=== PATIENT | male | born 1980 | race Caucasian/White ===

== ENCOUNTER 2017-11-24 09:45 | Observation (INO) | payer SELFPAY ==
[~2017-11-24 09:45] MED LIST: SUCCINYLCHOLINE CHLORIDE INJ 200 MG/10 ML VIAL ONE
--- NOTE | 2017-11-24 10:54 | ER Document Report ---
ED Medical Screen (RME) - General Chief Complaint: Abdominal Pain Stated Complaint: ABDOMINAL PAIN Time Seen by Provider: 11/24/17 10:53 Mode of Arrival: Ambulatory Information source: Patient Notes: This is a 37-year-old male with no significant problems who presents to the emergency room with lower suprapubic pain as well as rectal pain. Patient states he does have hemorrhoids. He states that the pain started approximately 1 week ago and has been intermittent but is gotten really bad this morning. Patient denies any fever. TRAVEL OUTSIDE OF THE [place] IN LAST 30 DAYS: No - Related Data Allergies/Adverse Reactions: No Known Drug Allergies Allergy (Verified 11/24/17 09:50) Past Medical History - Social History Chew tobacco use (# tins/day): No Frequency of alcohol use: Heavy Drug Abuse: None Renal/ Medical History: Denies: Hx Peritoneal Dialysis Past Surgical History: Reports: Hx Orthopedic Surgery - left hand Physical Exam - Vital signs Vitals: Temp Pulse Resp BP Pulse Ox 98.7 F 87 17 146/91 H 99 11/24/17 09:58 11/24/17 09:58 11/24/17 09:58 11/24/17 09:58 11/24/17 09:58 Course - Vital Signs Vital signs: Temp Pulse Resp BP Pulse Ox 98.7 F 87 17 146/91 H 99 11/24/17 09:58 11/24/17 09:58 11/24/17 09:58 11/24/17 09:58 11/24/17 09:58
[2017-11-24] MEDS ORDERED: ONDANSETRON 4 MG TAB.RAPDIS PO ONE (10:55)
[2017-11-24 11:35] LABS: ABSOLUTE BASOPHILS # (AUTO) 0.1 10^3/uL (0.0-0.2); ABSOLUTE EOSINOPHILS # (AUTO) 0.2 10^3/uL (0.0-0.6); ABSOLUTE LYMPHOCYTES (AUTO) 1.8 10^3/uL (0.5-4.7); ABSOLUTE MONOCYTES (AUTO) 0.7 10^3/uL (0.1-1.4); ABSOLUTE NEUT (AUTO) 6.8 10^3/uL (1.7-8.2); BASOPHILS % (AUTO) 0.6 % (0-2); EOSINOPHILS % (AUTO) 1.6 % (0-6); HEMATOCRIT 45.8 % (37.9-51.0); HEMOGLOBIN 15.6 g/dL (13.5-17.0); LYMPHOCYTES % (AUTO) 18.4 % (13-45); MEAN CORPUSCULAR HEMOGLOBIN 30.8 pg (27.0-33.4); MEAN CORPUSCULAR HGB CONC 34.1 g/dL (32.0-36.0); MEAN CORPUSCULAR VOLUME 90 fl (80-97); MONOCYTES % (AUTO) 7.7 % (3-13); PLATELET COUNT 305 10^3/uL (150-450); RED BLOOD COUNT 5.07 10^6/uL (4.35-5.55); RED CELL DISTRIBUTION WIDTH 13.4 % (11.5-14.0); SEGMENTED NEUTROPHILS % (AUTO) 71.7 % (42-78); TOTAL CELLS COUNTED % (AUTO) 100 %; WHITE BLOOD COUNT 9.6 10^3/uL (4.0-10.5)
[2017-11-24 11:40] LABS: APPEARANCE,URINE CLEAR; BILIRUBIN,URINE NEGATIVE (NEGATIVE); COLOR,URINE YELLOW; GLUCOSE, URINE NEGATIVE (NEGATIVE); KETONES,URINE NEGATIVE (NEGATIVE); LEUKOCYTE ESTERASE,URINE NEGATIVE (NEGATIVE); NITRITE,URINE NEGATIVE (NEGATIVE); PROTEIN,URINE NEGATIVE (NEGATIVE); URINE SPECIFIC GRAVITY 1.008; UROBILINOGEN,URINE NEGATIVE mg/dL (<2.0)
[2017-11-24] MEDS ORDERED: ONDANSETRON HCL INJ/PF 4 MG/2 ML SDV IV ONE (11:57)
[2017-11-24] MEDS ORDERED: MORPHINE SULFATE 10 MG/ML INJ IV ONE (11:57)
[2017-11-24] MEDS ORDERED: LIDOCAINE 4% INJ/PF (40 MG/ML) 5 ML AMPUL TOP ONE (11:59)
[2017-11-24] MEDS ORDERED: LIDOCAINE 4%/TETRACAINE 0.5%/EPI 0.18% 5 ML TOPICAL SOLN TOP ONE (12:09)
[2017-11-24 12:19] LABS: INTERNATIONAL RATION (INR) 0.91; PROTHROMBIN TIME 12.7 SEC (11.4-15.4)
[2017-11-24 12:20] LABS: PARTIAL THROMBOPLASTIN TIME 32.4 SEC (23.5-35.8)
[2017-11-24] MEDS ORDERED: AMPICILLIN SOD/SULBACTAM 3 GM VIAL IV ONE (12:35)
[2017-11-24] MEDS ORDERED: RINGERS SOLUTION,LACTATED 1,000 ML IV ONE (12:35)
--- NOTE | 2017-11-24 12:36 | ER Document Report ---
ED General - General Chief Complaint: Abdominal Pain Stated Complaint: ABDOMINAL PAIN Time Seen by Provider: 11/24/17 10:53 Mode of Arrival: Ambulatory TRAVEL OUTSIDE OF THE [place] IN LAST 30 DAYS: No - HPI Patient complains to provider of: Rectal pain Notes: Patient coming in for rectal bleeding rectal pain. Patient states ongoing for greater than a week. Was seen in urgent care because of rectal bleeding and underlying hemorrhoids. Patient states she was prescribed a cream however was unable to afford it. Patient states pain has increased therefore came to the ER for further evaluation. Patient states does have a history of chronic alcohol use drinks approximate sixpack a day. Patient also complains of some inguinal pain. Denies any dysuria denies any fevers chills nausea vomiting diarrhea. - Related Data Allergies/Adverse Reactions: No Known Drug Allergies Allergy (Verified 11/24/17 09:50) Past Medical History - General Information source: Patient - Social History Smoking Status: Current Every Day Smoker Chew tobacco use (# tins/day): No Frequency of alcohol use: Heavy Drug Abuse: None Family History: Reviewed & Not Pertinent Patient has suicidal ideation: No Patient has homicidal ideation: No Renal/ Medical History: Denies: Hx Peritoneal Dialysis Past Surgical History: Reports: Hx Orthopedic Surgery - left hand Review of Systems - Review of Systems Constitutional: No symptoms reported EENT: No symptoms reported Cardiovascular: No symptoms reported Respiratory: No symptoms reported Gastrointestinal: Abdominal pain, Rectal bleeding, Other - Rectal pain Genitourinary: No symptoms reported Male Genitourinary: No symptoms reported Musculoskeletal: No symptoms reported Skin: No symptoms reported Hematologic/Lymphatic: No symptoms reported Neurological/Psychological: No symptoms reported -: Yes All other systems reviewed and negative Physical Exam - Vital signs Vitals: Temp Pulse Resp BP Pulse Ox 98.7 F 87 17 146/91 H 99 11/24/17 09:58 11/24/17 09:58 11/24/17 09:58 11/24/17 09:58 11/24/17 09:58 Interpretation: Normal - General General appearance: Appears well, Alert - HEENT Head: Normocephalic, Atraumatic Eyes: Normal Pupils: PERRL - Respiratory Respiratory status: No respiratory distress Chest status: Nontender Breath sounds: Normal Chest palpation: Normal - Cardiovascular Rhythm: Regular Heart sounds: Normal auscultation Murmur: No - Abdominal Inspection: Normal Distension: No distension Bowel sounds: Normal Tenderness: Nontender Organomegaly: No organomegaly - Rectal Notes: Patient with a large thrombosed hemorrhoids of the rectum very painful to touch - Back Back: Normal, Nontender - Extremities General upper extremity: Normal inspection, Nontender, Normal color, Normal ROM , Normal temperature General lower extremity: Normal inspection, Nontender, Normal color, Normal ROM , Normal temperature, Normal weight bearing. No: Owen's sign - Neurological Neuro grossly intact: Yes Cognition: Normal Orientation: AAOx4 Gus Coma Scale Eye Opening: Spontaneous [place] Coma Scale Verbal: Oriented Gus Coma Scale Motor: Obeys Commands Gus Coma Scale Total: 15 Speech: Normal Motor strength normal: LUE, RUE, LLE, RLE Sensory: Normal - Psychological Associated symptoms: Normal affect, Normal mood - Skin Skin Temperature: Warm Skin Moisture: Dry Skin Color: Normal Course - Re-evaluation Re-evalutation: 11/24/17 14:52 Patient with very large thrombosed painful hemorrhoids they are painful to touch. Hemoglobin stable. The discussed with surgery on-call evaluated the patient and will take the patient to the OR for surgical treatment hopefully of his hemorrhoids - Vital Signs Vital signs: Temp Pulse Resp BP Pulse Ox 98.4 F 58 L 16 140/85 H 99 11/24/17 14:13 11/24/17 14:13 11/24/17 14:13 11/24/17 14:13 11/24/17 14:13 - Laboratory Result Diagrams: 11/24/17 11:17 11/24/17 12:37 Laboratory results interpreted by me: 11/24/17 12:37 BUN 6 L Discharge - Discharge Clinical Impression: Internal and external thrombosed hemorrhoids Condition: Good Disposition: ADMITTED OBSERVATION Admitting Provider: Surgicalist - [facility] Admitted: OR
[2017-11-24] MEDS ORDERED: DEXTROSE 5%-LACTATED RINGERS 1,000 ML IV PRN (12:41)
[2017-11-24] MEDS ORDERED: ONDANSETRON HCL INJ/PF 4 MG/2 ML SDV IV PRN (12:41)
--- NOTE | 2017-11-24 12:41 | PDOC H&P ---
History of Present Illness Patient complains of: Anal pain, rectal bleeding, external hemorrhoids. History of Present Illness: NATASHA VELÁZQUEZ is a 37 year old male with a long history of internal and external hemorrhoids. The patient reports intermittent bleeding and anal pain. Patient reports that approximately 3-4 days ago his hemorrhoids protruded, became swollen, and became excessively painful. The patient has perform sitz bath at home and used preparation H, however the hemorrhoids have continued to worsen. The patient cannot stand the pain any longer and presented to the emergency department for evaluation. Patient denies fevers, chills, chest pain , abdominal pain, shortness of breath, dizziness, orthostasis, blurry vision, headache, malaise, fatigue, nausea, vomiting, hematemesis. His pain is severe, 10 out of 10. It is sharp and stabbing. Patient does have intermittent rectal bleeding. Past Medical History Medical History: None Past Surgical History Past Surgical History: Reports: Orthopedic Surgery - left hand Social History Smoking Status: Current Every Day Smoker Frequency of Alcohol Use: Heavy - 6 pack of beer every day. Never had delirium tremens or withdrawal. Hx Recreational Drug Use: No Family History Parental Family History Reviewed: Yes Children Family History Reviewed: Yes Sibling(s) Family History Reviewed.: Yes Medication/Allergy Home Medications: No Home Medications 11/24/17 Allergies/Adverse Reactions: No Known Drug Allergies Allergy (Verified 11/24/17 09:50) Review of Systems Constitutional: ABSENT: anorexia, chills, fatigue, fever(s), headache(s) Eyes: ABSENT: visual disturbances Ears: ABSENT: hearing changes Nose, Mouth, and Throat: ABSENT: sore throat Cardiovascular: ABSENT: chest pain, orthropnea, palpitations Respiratory: ABSENT: cough, dyspnea Gastrointestinal: PRESENT: hematochezia, other - Large thrombosed internal and external hemorrhoid, anal pain.. ABSENT: abdominal pain, bloating, nausea, vomiting Genitourinary: ABSENT: dysuria Musculoskeletal: ABSENT: back pain Integumentary: ABSENT: pruritus, rash Neurological: ABSENT: abnormal speech, convulsions, memory loss, numbness Psychiatric: ABSENT: anxiety, depression Endocrine: ABSENT: cold intolerance, heat intolerance Hematologic/Lymphatic: ABSENT: easy bleeding, easy bruising Physical Exam Vital Signs: Temp Pulse Resp BP Pulse Ox 98.7 F 87 17 146/91 H 99 11/24/17 09:58 11/24/17 09:58 11/24/17 09:58 11/24/17 09:58 11/24/17 09:58 Intake & Output 11/23/17 11/24/17 11/25/17 06:59 06:59 06:59 Weight 83.3 kg General appearance: PRESENT: mild distress - Rectal pain Head exam: PRESENT: atraumatic, normocephalic Eye exam: PRESENT: EOMI, PERRLA. ABSENT: scleral icterus Mouth exam: PRESENT: moist, neck supple Teeth exam: ABSENT: poor dentation Neck exam: ABSENT: meningismus, tenderness, thyromegaly, tracheal deviation Respiratory exam: PRESENT: clear to auscultation kaleb, unlabored. ABSENT: chest wall tenderness, wheezes Cardiovascular exam: PRESENT: RRR Pulses: PRESENT: normal radial pulses Vascular exam: PRESENT: normal capillary refill. ABSENT: pallor GI/Abdominal exam: PRESENT: soft. ABSENT: distended, guarding, tenderness Rectal exam: PRESENT: hemorrhoids - Large internal and external hemorrhoids, prolapsing, thrombosed. Areas of necrosis are evident. Extremities exam: ABSENT: clubbing Musculoskeletal exam: ABSENT: deformity Neurological exam: PRESENT: alert, awake, oriented to person, oriented to place , oriented to time, oriented to situation, CN II-XII grossly intact Psychiatric exam: ABSENT: agitated, anxious, depressed Focused psych exam: ABSENT: delusional Skin exam: ABSENT: cyanosis, erythema, jaundice Results Laboratory Results: 11/24/17 11:17 11/24/17 11:17 11/24/17 11/24/17 11/24/17 11:17 11:17 11:17 WBC 9.6 RBC 5.07 Hgb 15.6 Hct 45.8 MCV 90 MCH 30.8 MCHC 34.1 RDW 13.4 Plt Count 305 Seg Neutrophils % 71.7 Lymphocytes % 18.4 Monocytes % 7.7 Eosinophils % 1.6 Basophils % 0.6 Absolute Neutrophils 6.8 Absolute Lymphocytes 1.8 Absolute Monocytes 0.7 Absolute Eosinophils 0.2 Absolute Basophils 0.1 Sodium Cancelled Potassium Cancelled Chloride Cancelled Carbon Dioxide Cancelled Anion Gap Cancelled BUN Cancelled Creatinine Cancelled Est GFR ( Amer) Cancelled Est GFR (Non-Af Amer) Cancelled Glucose Cancelled Calcium Cancelled Total Bilirubin Cancelled AST Cancelled ALT Cancelled Alkaline Phosphatase Cancelled Total Protein Cancelled Albumin Cancelled Urine Color YELLOW Urine Appearance CLEAR Urine pH 5.0 Ur Specific [place] 1.008 Urine Protein NEGATIVE Urine Glucose (UA) NEGATIVE Urine Ketones NEGATIVE Urine Blood NEGATIVE Urine Nitrite NEGATIVE Ur Leukocyte Esterase NEGATIVE Urine WBC (Auto) 0 Assessment & Plan - Diagnosis (1) Internal and external thrombosed hemorrhoids Is this a current diagnosis for this admission?: Yes - Plan Summary Plan Summary: This is a 37-year-old male with thrombosed internal and external hemorrhoids. The patient has evidence of skin necrosis overlying the hemorrhoids. Due to this, I recommended urgent surgical intervention. I plan to perform the operation today. This is been discussed with the patient at length. Risks/ benefits discussed, informed consent obtained, and all questions answered.
[2017-11-24 13:11] LABS: ALANINE AMINOTRANSFERASE 41 U/L (21-72); ALBUMIN 4.3 g/dL (3.5-5.0); ALKALINE PHOSPHATASE 69 U/L (38-126); ANION GAP 12 (5-19); ASPARTATE AMINO TRANSFERASE 25 U/L (17-59); BILIRUBIN,DIRECT 0.3 mg/dL (0.0-0.4); BILIRUBIN,TOTAL 0.6 mg/dL (0.2-1.3); BLOOD UREA NITROGEN 6 mg/dL (7-20); CALCIUM 9.3 mg/dL (8.4-10.2); CARBON DIOXIDE 27 mmol/L (22-30); CHLORIDE 104 mmol/L (98-107); GLUCOSE 101 mg/dL (75-110); POTASSIUM 4.4 mmol/L (3.6-5.0); SODIUM 143.4 mmol/L (137-145); TOTAL PROTEIN 7.1 g/dL (6.3-8.2)
[2017-11-24] MEDS ORDERED: IPRATROPIUM/ALBUTEROL 0.5-2.5 MG/3 ML AMPUL NEB ONE (14:26)
[2017-11-24] MEDS ORDERED: MIDAZOLAM 2 MG/2 ML INJ ONE (15:10)
[2017-11-24] MEDS ORDERED: EPHEDRINE SULFATE INJ 50 MG/1 ML AMPULE ONE (15:10)
[2017-11-24] MEDS ORDERED: FENTANYL CITRATE INJ/PF 100 MCG/2 ML AMPUL ONE (15:10)
[2017-11-24] MEDS ORDERED: ACETAMINOPHEN 1,000 MG/100 ML RTUPB IV ONE (15:11)
[2017-11-24] MEDS ORDERED: PROPOFOL INJ 200 MG/20 ML VIAL IV ONE (15:11)
[2017-11-24] MEDS ORDERED: BACITRACIN ZINC OINTMENT 15 GM ONE (15:20)
[2017-11-24] MEDS ORDERED: LIDOCAINE 2% JELLY 30 ML TUBE ONE (15:20)
[2017-11-24] MEDS ORDERED: BUPIVACAINE INJ/PF LIPOSOME/PF 266 MG/20 ML SDV ONE (15:21)
[2017-11-24] MEDS ORDERED: METRONIDAZOLE 500 MG/NS RTU 500 MG/100 ML RTUPB IV ONE (15:52)
[2017-11-24] MEDS ORDERED: PROMETHAZINE HCL INJ 25 MG/1 ML VIAL IV PRN (16:10)
[2017-11-24] MEDS ORDERED: FENTANYL CITRATE INJ/PF 100 MCG/2 ML AMPUL IV PRN ×3 (16:10)
[2017-11-24] MEDS ORDERED: MEPERIDINE HCL/PF INJ 25 MG/1 ML DISP.SYRIN IV PRN (16:10)
[2017-11-24] MEDS ORDERED: DIPHENHYDRAMINE HCL 50 MG/ML VIAL IV PRN (16:10)
[2017-11-24] MEDS ORDERED: MEPERIDINE HCL/PF INJ 25 MG/1 ML DISP.SYRIN ONE (16:48)
--- NOTE | 2017-11-24 16:50 | Operative Report ---
Nonrecallable Operative Report DATE OF SURGERY: 11/24/17 PREOPERATIVE DIAGNOSIS: Thrombosed internal and external hemorrhoids, left lateral and right posterior positions POSTOPERATIVE DIAGNOSIS: Same as above OPERATION: 2-column Surgical hemorrhoidectomy (left lateral and right posterior columns) SURGEON: REID BRYANT ANESTHESIA: GA TISSUE REMOVED OR ALTERED: Left lateral and right posterior hemorrhoid columns COMPLICATIONS: None apparent ESTIMATED BLOOD LOSS: 25 cc PROCEDURE: Drains/implants: None. Procedure in detail: After informed consent was obtained, the patient was brought into the operating room and laid in the prone jackknife position. The rectum was prepped and draped in a normal sterile fashion. An anal block was created with 20 cc of exparel. The rectum was inspected. There were significantly enlarged internal and external hemorrhoids in the right posterior and left lateral columns. The left lateral column was addressed first. The hemorrhoid was excised using the Bovie electrocautery from the internal to the external position. This was done carefully, so as not to injure the sphincter complex. The resultant defect was closed using 3-0 chromic suture in simple running fashion. Great care was taken to reapproximate mucosa to mucosa, anoderm to anoderm, and skin to skin. Once this was completed, attention was turned to the right posterior column. Right posterior column was also enlarged. This hemorrhoid column was also excised using Bovie electrocautery. Great care was taken not to injure the sphincter complex. Once the hemorrhoid was removed, the defect was closed using 3-0 chromic suture in simple running fashion. Great care was taken to reapproximate mucosa to mucosa, anoderm to anoderm, and skin to skin. Once this was complete, a dressing was fashioned, and the procedure was concluded. All sponge, instrument, and needle counts were correct 2. Condition: Stable.
[2017-11-24] MEDS ORDERED: OXYCODONE-ACETAMINOPHEN 5-325 MG TABLET ONE (17:21)
[2017-11-24] MEDS ORDERED: OXYCODONE-ACETAMINOPHEN 5-325 MG TABLET PO ONE (17:45)
[2017-11-24] MEDS ORDERED: METRONIDAZOLE 500 MG/NS RTU 500 MG/100 ML RTUPB IV PRN (18:00)
[2017-11-24] MEDS ORDERED: NORMAL SALINE 1000 ML 1,000 ML with MAGNESIUM SULFATE 8 MEQ, THIAMINE HCL 100 MG, MVI, ... IV ONE ×5 (18:00)
[2017-11-24] MEDS: DOCUSATE SODIUM 100 MG CAPSULE PO SCH (18:15)
[2017-11-24] MEDS ORDERED: PSYLLIUM SEED-SF 5.85 GM PACKET PO ONE (18:21)
[2017-11-24] MEDS: PSYLLIUM SEED-SF 5.85 GM PACKET PO SCH (18:28)
[2017-11-24] MEDS: MORPHINE SULFATE 10 MG/ML INJ IV PRN (21:22)
[2017-11-25] MEDS: OXYCODONE HCL IR 5 MG TABLET PO PRN ×2 (00:59→08:26)
[2017-11-25] MEDS: OXYCODONE-ACETAMINOPHEN 5-325 MG TABLET PO PRN ×2 (01:00→08:27)
[2017-11-25] MEDS: MORPHINE SULFATE 10 MG/ML INJ IV PRN (04:27)
--- NOTE | 2017-11-25 06:10 | PDOC DISCHARGE SUMMARY ---
General - Admit/Disc Date/PCP Admission Date/Primary Care Provider: 11/24/17 12:41 Discharge Date: 11/25/17 - Discharge Diagnosis (1) Internal and external thrombosed hemorrhoids Is this a current diagnosis for this admission?: Yes - Additional Information Discharge Diet: As Tolerated Discharge Activity: Slowly Increase Activity Home Medications: No Home Medications 11/24/17 History of Present Illness History of Present Illness: NATASHA VELÁZQUEZ is a 37 year old male with a long history of internal and external hemorrhoids. The patient reports intermittent bleeding and anal pain. Patient reports that approximately 3-4 days ago his hemorrhoids protruded, became swollen, and became excessively painful. The patient has perform sitz bath at home and used preparation H, however the hemorrhoids have continued to worsen. The patient cannot stand the pain any longer and presented to the emergency department for evaluation. Patient denies fevers, chills, chest pain , abdominal pain, shortness of breath, dizziness, orthostasis, blurry vision, headache, malaise, fatigue, nausea, vomiting, hematemesis. His pain is severe, 10 out of 10. It is sharp and stabbing. Patient does have intermittent rectal bleeding. The patient was found to have necrosing thrombosed internal and external hemorrhoids and was admitted for definitive surgical treatment. Hospital Course Hospital Course: Patient was taken to the operating room where 2 column hemorrhoidectomy was performed. The patient had enlarged hemorrhoids in the right posterior and left lateral columns. The patient tolerated the procedure well. By 11/25/2017 the patient was ambulating, tolerating a diet, his pain was controlled with oral pain medications, and it was felt that he had reached maximal hospital benefit and was fit for discharge. Physical Exam Vital Signs: Temp Pulse Resp BP Pulse Ox 98.9 F 75 15 138/83 H 100 11/25/17 04:20 11/25/17 04:20 11/25/17 04:20 11/25/17 04:20 11/25/17 04:20 Intake & Output 11/23/17 11/24/17 11/25/17 06:59 06:59 06:59 Intake Total 400 Output Total 10 Balance 390 Qualifiers - * PATIENT BEING DISCHARGED WITH ANY OF THE FOLLOWING DIAGNOSIS: No Plan Discharge Plan: Discharge home. Diet as tolerated. Activity: Nonstrenuous. Follow-up with me in 7-10 days at [facility]. Percocet 10/325 mg p.o. every 6 hours as needed pain. Ibuprofen 800 mg p.o. 3 times daily with meals. 5% lidocaine ointment to rectum 3 times daily. OTC Neosporin to rectum 3 times daily. OTC fiber supplement (Metamucil powder) 2 tablespoons p.o. twice daily. OTC stool softener, 2 tablets p.o. twice daily. Warm, soapy sitz baths p.o. twice daily and after bowel movements. Time Spent: Less than 30 Minutes
[2017-11-25 09:49] VITALS: BP 138/83
[2017-11-25] MEDS: DOCUSATE SODIUM 100 MG CAPSULE PO SCH (11:31)
[2017-11-25] MEDS: PSYLLIUM SEED-SF 5.85 GM PACKET PO SCH (11:31)
== END 2017-11-25 11:25 | disposition home or self-care (01) ==
LOC: ER 09:45 → EH 12:41 → 2N 17:34
PROVIDERS: ATTEND Surgery
PROC: 06BY0ZC Excision of Hemorrhoidal Plexus, Open Approach (ICD-10-PCS; principal; 2017-11-24 15:30)
DX: K64.5 Perianal venous thrombosis (principal); K64.8 Other hemorrhoids; I96 Gangrene, not elsewhere classified; F17.200 Nicotine dependence, unspecified, uncomplicated
CPT/HCPCS: 99284; 96361; 96375; 96365; 36415; 87040; 80307; 85025; 85610; 85730; 80053; 81001; 88304 ×2; 46260; G0378 ×3; J2250; J3490 ×3; S0119; J3010; J0295; J2175; J2270 ×2; J0330; J2405; J7120; J2704; J7620; J0131; C9290; 902

== ENCOUNTER 2020-04-06 15:15 | Emergency (ER) | payer BC ==
--- NOTE | 2020-04-06 16:19 | ER Document Report ---
ED Medical Screen (RME) - General Chief Complaint: Flank Pain Stated Complaint: RIGHT FLANK PAIN Time Seen by Provider: 04/06/20 16:18 Notes: Patient presents complaining of right upper quadrant pain that started today. Patient states he has vomited once. Patient denies any diarrhea. Patient does report some difficulty with voiding today. I have greeted and performed a rapid initial assessment of this patient. A comprehensive ED assessment and evaluation of the patient, analysis of test results and completion of the medical decision making process will be conducted by additional ED providers. TRAVEL OUTSIDE OF THE [place] IN LAST 30 DAYS: No - Related Data Allergies/Adverse Reactions: No Known Drug Allergies Allergy (Verified 04/06/20 16:13) Past Medical History Renal/ Medical History: Denies: Hx Peritoneal Dialysis Past Surgical History: Reports: Hx Orthopedic Surgery - left hand Physical Exam - Vital signs Vitals: Temp Pulse Resp BP Pulse Ox 98.2 F 114 H 20 164/118 H 114 H 04/06/20 15:36 04/06/20 15:36 04/06/20 15:36 04/06/20 15:36 04/06/20 15:36 - Abdominal Tenderness: Tender - Right upper quadrant Course - Vital Signs Vital signs: Temp Pulse Resp BP Pulse Ox 98.2 F 114 H 20 164/118 H 114 H 04/06/20 15:36 04/06/20 15:36 04/06/20 15:36 04/06/20 15:36 04/06/20 15:36
--- NOTE | 2020-04-06 17:04 | RADIOLOGY REPORT (SQ) ---
EXAM DESCRIPTION: U/S ABDOMEN LIMITED W/O DOP IMAGES COMPLETED DATE/TIME: 04/06/2020 4:53 pm REASON FOR STUDY: RUQ pain COMPARISON: None. TECHNIQUE: Dynamic and static grayscale images acquired of the abdomen and recorded on PACS. Additio nal selected color Doppler and spectral images recorded. LIMITATIONS: None. FINDINGS: PANCREAS: No masses. Visualized pancreatic duct normal caliber. LIVER: Fatty liver. The liver measures 17.0 cm in length, upper limits of normal for size. LIVER VASCULATURE: Normal directional flow of the main portal vein and hepatic veins. GALLBLADDER: No stones. The gallbladder wall measures 3.0 mm, upper limits of normal wall thickness. No pericholecystic fluid. ULTRASOUND-DETECTED BASURTO'S SIGN: Negative. INTRAHEPATIC DUCTS AND COMMON DUCT: CBD measures 4.0 mm in diameter, normal. The intrahepatic ducts normal caliber. No filling defects. INFERIOR VENA CAVA: Normal flow. AORTA: No aneurysm. RIGHT KIDNEY: The right kidney measures 9.0 x 6.0 x 5.0 cm, normal size. Normal echogenicity. No benja id or suspicious masses. No hydronephrosis. No calcifications. PERITONEAL AND RIGHT PLEURAL SPACE: No ascites or effusions. OTHER: Prominent fluid filled stomach seen on the midline images. IMPRESSION: 1. Fatty liver. 2. Additional findings as above. TECHNICAL DOCUMENTATION: JOB ID: [id number] [employer]- All Rights Reserved Reading location - IP/workstation name: [email or web address]
[2020-04-06 17:17] LABS: ABSOLUTE BASOPHILS # (AUTO) 0.1 10^3/uL (0.0-0.2); ABSOLUTE EOSINOPHILS # (AUTO) 0.3 10^3/uL (0.0-0.6); ABSOLUTE LYMPHOCYTES (AUTO) 2.5 10^3/uL (0.5-4.7); ABSOLUTE MONOCYTES (AUTO) 0.8 10^3/uL (0.1-1.4); ABSOLUTE NEUT (AUTO) 6.3 10^3/uL (1.7-8.2); BASOPHILS % (AUTO) 0.7 % (0-2); EOSINOPHILS % (AUTO) 2.8 % (0-6); HEMATOCRIT 42.6 % (37.9-51.0); HEMOGLOBIN 14.8 g/dL (13.5-17.0); LYMPHOCYTES % (AUTO) 25.3 % (13-45); MEAN CORPUSCULAR HEMOGLOBIN 31.2 pg (27.0-33.4); MEAN CORPUSCULAR HGB CONC 34.7 g/dL (32.0-36.0); MEAN CORPUSCULAR VOLUME 90 fl (80-97); PLATELET COUNT 288 10^3/uL (150-450); RED BLOOD COUNT 4.74 10^6/uL (4.35-5.55); RED CELL DISTRIBUTION WIDTH 13.5 % (11.5-14.0); SEGMENTED NEUTROPHILS % (AUTO) 63.2 % (42-78); TOTAL CELLS COUNTED % (AUTO) 100 %; WHITE BLOOD COUNT 9.9 10^3/uL (4.0-10.5)
[2020-04-06 17:34] LABS: ALKALINE PHOSPHATASE 68 U/L (38-126); ANION GAP 11 (5-19); ASPARTATE AMINO TRANSFERASE 34 U/L (17-59); BILIRUBIN,DIRECT 0.2 mg/dL (0.0-0.4); BILIRUBIN,TOTAL 0.6 mg/dL (0.2-1.3); BLOOD UREA NITROGEN 11 mg/dL (7-20); CALCIUM 9.2 mg/dL (8.4-10.2); CARBON DIOXIDE 29 mmol/L (22-30); CHLORIDE 96 mmol/L (98-107); GLUCOSE 102 mg/dL (75-110); POTASSIUM 5.5 mmol/L (3.6-5.0); TOTAL PROTEIN 8.1 g/dL (6.3-8.2)
[2020-04-06 17:47] LABS: APPEARANCE,URINE CLEAR; BILIRUBIN,URINE NEGATIVE (NEGATIVE); COLOR,URINE YELLOW; GLUCOSE, URINE NEGATIVE (NEGATIVE); KETONES,URINE NEGATIVE (NEGATIVE); LEUKOCYTE ESTERASE,URINE NEGATIVE (NEGATIVE); NITRITE,URINE NEGATIVE (NEGATIVE); PROTEIN,URINE NEGATIVE (NEGATIVE); URINE SPECIFIC GRAVITY 1.015; UROBILINOGEN,URINE NEGATIVE mg/dL (<2.0)
--- NOTE | 2020-04-06 18:34 | ER Document Report ---
ED General - General Chief Complaint: Upper Abdominal Pain Stated Complaint: RIGHT FLANK PAIN Time Seen by Provider: 04/06/20 16:18 Primary Care Provider: VICENTA HAY MD [Primary Care Provider] - Follow up as needed TRAVEL OUTSIDE OF THE [place] IN LAST 30 DAYS: No - HPI Notes: 39-year-old male presents with right side pain. Patient states that this morning he suddenly had an episode of vomiting, he started salivating and then vomited out of the blue. He states that he was in an awkward position when he vomited because he was not expecting it. After vomiting he developed a sharp pain towards his right side, states that it feels like he pulled something. Pain worsened when he was coughing afterwards. Patient states that he came to the emergency department because his daughter and made him. He currently denies any further vomiting, abdominal pain or diarrhea. He states that his primary care doctor has been trending his liver enzymes as they have been elevat ed. Yes he states he is due for his usual home medicines which is oxycodone 15 mg, lisinopril and gabapentin. - Related Data Allergies/Adverse Reactions: No Known Drug Allergies Allergy (Verified 04/06/20 16:13) Past Medical History - General Information source: Patient - Social History Smoking Status: Current Every Day Smoker Chew tobacco use (# tins/day): No Frequency of alcohol use: Occasional Family History: Reviewed & Not Pertinent Renal/ Medical History: Denies: Hx Peritoneal Dialysis Past Surgical History: Reports: Hx Orthopedic Surgery - left hand Review of Systems - Review of Systems Constitutional: No symptoms reported EENT: No symptoms reported Cardiovascular: denies: Chest pain Respiratory: denies: Short of breath Gastrointestinal: See HPI Genitourinary: No symptoms reported Male Genitourinary: No symptoms reported Musculoskeletal: denies: Back pain Skin: No symptoms reported Hematologic/Lymphatic: No symptoms reported Neurological/Psychological: No symptoms reported Physical Exam - Vital signs Vitals: Temp Pulse Resp BP Pulse Ox 98.2 F 114 H 20 164/118 H 114 H 04/06/20 15:36 04/06/20 15:36 04/06/20 15:36 04/06/20 15:36 04/06/20 15:36 - General General appearance: Appears well, Alert In distress: None - HEENT Head: Normocephalic, Atraumatic Extraocular movements intact: Yes Pupils: PERRL - Respiratory Chest status: Tender - Right inferior chest wall mid axillary line Breath sounds: Normal - Cardiovascular Rhythm: Regular Heart sounds: Normal auscultation - Abdominal Inspection: Obese Distension: No distension Tenderness: Nontender - Extremities General lower extremity: No: Edema - Neurological Neuro grossly intact: Yes Cognition: Normal Orientation: AAOx4 - Psychological Associated symptoms: Normal affect - Skin Skin Temperature: Warm Course - Re-evaluation Re-evalutation: 39-year-old male presents with right inferior rib pain after an episode of acute vomiting this morning. On exam he is alert and well-appearing, his abdomen is soft and without any focal areas of tenderness, he does have some tenderness to the right inferior rib cage. The triage process he had labs and ultrasound done. Ultrasound is negative for acute cholecystitis. Labs are without marked abnormalities. Suspects musculoskeletal strain or spasm after his episode of vomiting, his pain is very positional and superficial. Have a low suspicion for acute abdominal pathology at this time given his overall reassuring exam. Will have on her chest x-ray just to assure that no occult consolidation is present. Will treat symptomatically with Flexeril and lidocaine patch. We will also give his usual home medications due now. 04/06/20 19:44 Chest x-ray is negative for consolidation 04/06/20 19:55 Patient reports improvement in his symptoms. Will prescribe course of Flexeril. Return precautions given, stable at time of discharge. - Vital Signs Vital signs: Temp Pulse Resp BP Pulse Ox 99.2 F 97 20 149/99 H 96 04/06/20 19:51 04/06/20 19:51 04/06/20 19:51 04/06/20 19:51 04/06/20 19:51 - Laboratory Results Result Diagrams: 04/06/20 16:55 04/06/20 16:55 Laboratory Results Interpreted: 04/06/20 16:55 Sodium 135.9 L Potassium 5.5 H Chloride 96 L ALT 60 H Critical Laboratory Results Reviewed: No Critical Results - Radiology Results Critical Radiology Results Reviewed: No Critical Results Discharge - Discharge Clinical Impression: Rib pain on right side Disposition: HOME, SELF-CARE Instructions: Chest Wall Pain ([facility]) Additional Instructions: You may use Flexeril as needed for pain. Please have close follow-up with your primary care doctor. Return to the emergency department for any concerning worsening symptoms. Prescriptions: Cyclobenzaprine HCl [Flexeril 10 mg Tablet] 10 mg PO TIDP PRN #15 tab PRN Reason: Referrals: VICENTA HAY MD [Primary Care Provider] - Follow up as needed
--- NOTE | 2020-04-06 18:36 | ER Document Report ---
ED General - General Chief Complaint: Upper Abdominal Pain Stated Complaint: RIGHT FLANK PAIN Time Seen by Provider: 04/06/20 16:18 TRAVEL OUTSIDE OF THE [place] IN LAST 30 DAYS: No - Related Data Allergies/Adverse Reactions: No Known Drug Allergies Allergy (Verified 04/06/20 16:13) Past Medical History - Social History Smoking Status: Current Every Day Smoker Chew tobacco use (# tins/day): No Frequency of alcohol use: Occasional Family History: Reviewed & Not Pertinent Renal/ Medical History: Denies: Hx Peritoneal Dialysis Past Surgical History: Reports: Hx Orthopedic Surgery - left hand Physical Exam - Vital signs Vitals: Temp Pulse Resp BP Pulse Ox 98.2 F 114 H 20 164/118 H 114 H 04/06/20 15:36 04/06/20 15:36 04/06/20 15:36 04/06/20 15:36 04/06/20 15:36 Course - Vital Signs Vital signs: Temp Pulse Resp BP Pulse Ox 98.2 F 114 H 20 164/118 H 114 H 04/06/20 15:36 04/06/20 15:36 04/06/20 15:36 04/06/20 15:36 04/06/20 15:36 - Laboratory Results Result Diagrams: 04/06/20 16:55 04/06/20 16:55 Laboratory Results Interpreted: 04/06/20 16:55 Sodium 135.9 L Potassium 5.5 H Chloride 96 L ALT 60 H
[2020-04-06] MEDS ORDERED: LIDOCAINE 5% (700 MG) TRANSDERMAL ADH..PATCH TP ONE (18:50)
[2020-04-06] MEDS ORDERED: CYCLOBENZAPRINE HCL 10 MG TABLET PO ONE (18:50)
[2020-04-06] MEDS ORDERED: OXYCODONE HCL IR 5 MG TABLET PO ONE (18:50)
[2020-04-06] MEDS ORDERED: GABAPENTIN 300 MG CAPSULE PO ONE (18:50)
[2020-04-06] MEDS ORDERED: LISINOPRIL 5 MG TABLET PO ONE (18:50)
--- NOTE | 2020-04-06 19:34 | RADIOLOGY REPORT (SQ) ---
EXAM DESCRIPTION: CHEST 2 VIEWS IMAGES COMPLETED DATE/TIME: 04/06/2020 7:20 pm REASON FOR STUDY: R lower rib pain COMPARISON: None. EXAM PARAMETERS: NUMBER OF VIEWS: two views TECHNIQUE: Digital Frontal and Lateral radiographic views of the chest acquired. RADIATION DOSE: NA LIMITATIONS: none FINDINGS: LUNGS AND PLEURA: No opacities, masses or pneumothorax. No pleural effusion. MEDIASTINUM AND HILAR STRUCTURES: No masses or contour abnormalities. HEART AND VASCULAR STRUCTURES: Heart normal size. No evidence for failure. BONES: No acute findings. HARDWARE: None in the chest. OTHER: No other significant finding. IMPRESSION: NO ACUTE RADIOGRAPHIC FINDING IN THE CHEST. TECHNICAL DOCUMENTATION: JOB ID: [id number] 2010 [employer]- All Rights Reserved Reading location - IP/workstation name: [email or web address]
[2020-04-06 19:52] VITALS: BP 149/99
== END 2020-04-06 20:13 | disposition home or self-care (01) ==
LOC: ER 15:15
DX: R07.81 Pleurodynia (principal); R10.10 Upper abdominal pain, unspecified; R11.10 Vomiting, unspecified; F17.200 Nicotine dependence, unspecified, uncomplicated
CPT/HCPCS: 36415; 71046; 76705; 80053; 81001; 83690; 85025; 99285